=== PATIENT | female | born 1935 | race Two or more races ===

== ENCOUNTER 2024-03-12 17:37 | Emergency (ER) | payer MEDICARE, OTHER ==
[~2024-03-12] VITALS: Ht 149.9 cm; Wt 56.2 kg
[2024-03-12 20:53] VITALS: BP 133/70; TEMP 98.2; O2SAT 95
[2024-03-12] MEDS ORDERED: ACETAMINOPHEN 325 MG TABLET PO ONE (21:00)
== END 2024-03-12 20:53 | disposition home or self-care (01) ==
LOC: ER 17:49
DX: S40.012A Contusion of left shoulder, initial encounter (principal); S89.81XA Other specified injuries of right lower leg, initial encounter; S09.8XXA Other specified injuries of head, initial encounter; I10 Essential (primary) hypertension; Z87.39 Personal history of other diseases of the musculoskeletal system and connective tissue; Z88.0 Allergy status to penicillin; Z88.2 Allergy status to sulfonamides; Z88.6 Allergy status to analgesic agent; W01.198A Fall on same level from slipping, tripping and stumbling with subsequent striking against other object, initial encounter; Y93.E1 Activity, personal bathing and showering; Y92.091 Bathroom in other non-institutional residence as the place of occurrence of the external cause; Y99.8 Other external cause status
CPT/HCPCS: 70450-TC; 71045-TC; 72125-TC; 73010-TC; 73564-TC; 73590-TC

== ENCOUNTER 2024-08-28 13:51 | Emergency (ER) | payer MEDICARE, OTHER ==
[~2024-08-28] VITALS: Ht 149.9 cm; Wt 56.2 kg
[2024-08-28 14:03] VITALS: BP 147/78; TEMP 97.4
[2024-08-28 15:45] VITALS: O2SAT 98
== END 2024-08-28 15:46 | disposition home or self-care (01) ==
LOC: ER 13:53
DX: S83.91XA Sprain of unspecified site of right knee, initial encounter (principal); G25.81 Restless legs syndrome; I10 Essential (primary) hypertension; Z88.0 Allergy status to penicillin; Z88.2 Allergy status to sulfonamides; Z88.6 Allergy status to analgesic agent; X50.1XXA Overexertion from prolonged static or awkward postures, initial encounter; Y93.89 Activity, other specified; Y92.89 Other specified places as the place of occurrence of the external cause; Y99.8 Other external cause status
CPT/HCPCS: 73564-TC